=== PATIENT | female | born 1945 | race Caucasian/White ===

== ENCOUNTER → 2017-11-08 | Day surgery (SDC) | payer OTHER ==
[~2017-11-08] MED LIST: LIPITOR20 MG PO; NORVASC2.5 MG PO; SINGULAIR10 MG PO; VALSARTAN-HCTZ1 EAC4 PO
== END | disposition home or self-care (01) ==
LOC: CIR.AMB 06:24
DX: C50.212 Malignant neoplasm of upper-inner quadrant of left female breast (principal)

== ENCOUNTER 2024-03-03 17:21 | Emergency (ER) | payer OTHER ==
[~2024-03-03] VITALS: Ht 175.3 cm; Wt 79.4 kg
[2024-03-03] MEDS ORDERED: ENALAPRILAT DIHYDRATE 1.25 MG/ML VIAL IV ONE (18:45)
[2024-03-03 19:36] LABS: HEMATOCRIT 45.3 % (36.0-45.00); HEMOGLOBIN 15.3 g/dL (12.0-15.00); MEAN CELL VOLUME 89.6 fL (80.00-100.00); MEAN CORPUSCULAR HEMOGLOBIN 30.2 pg (27.00-32.0); MEAN CORPUSCULAR HGB CONC 33.7 g/dl (32.0-36.0); PLATELET COUNT 392 K/uL (150-450); RED BLOOD COUNT 5.06 M/uL (4.00-6.00); RED CELL DISTRIBUTION WIDTH 14.1 % (11.5-14.5)
[2024-03-03 20:05] LABS: ALBUMIN 4.1 gm/dL (3.4-5.0); BILIRUBIN TOTAL 0.61 mg/dL (0.3-1.2); CALCIUM 9.7 mg/dL (8.5-10.1); CREATININE SERUM 0.76 mg/dL (0.55-1.02); GFR 73.22; GLOBULINA 3.9 G/DL (2.4-3.5); POTASSIUM 3.91 mEq/L (3.5-5.1)
[2024-03-03 21:00] LABS: URINE APPEARANCE Clear; URINE BILIRRUBIN Negative (NEGATIVE); URINE BLOOD Trace; URINE COLOR Yellow; URINE GLUCOSE Negative (NEGATIVE); URINE KETONE Negative (NEGATIVE); URINE LEUKOCYTE Negative; URINE NITRATE Negative; URINE PROTEIN Negative (NEGATIVE); URINE UROBILINOGEN 0.2 E.U./dl
[2024-03-03] MEDS ORDERED: LABETALOL HCL 100 MG/20 ML ML IV ONE ×2 (21:00→22:30)
[2024-03-03 21:04] LABS: URINE BACTERIA 308.5 uL (0.0-1933); URINE EPITHELIAL CELLS 17.7 uL (0.0-38.8); URINE RBC 31.7 uL (0.0-20.8); URINE WBC 2.6 uL (0.0-23.2)
[2024-03-03] MEDS ORDERED: NIFEDIPINE 10 MG CAPSULE PO ONE (22:30)
== END 2024-03-04 00:02 ==
LOC: ER 17:23
PROVIDERS: Emergency Medicine; Nurse Practitioner Family
DX: I10 Essential (primary) hypertension (principal); Z91.041 Radiographic dye allergy status
CPT/HCPCS: 36415; 93005; 96365; 99283; J3490 ×4

== ENCOUNTER 2024-03-10 05:40 | Day surgery (SDC) | payer OTHER ==
[2024-03-10] MEDS ORDERED: LIDOCAINE HCL 1%/EPINEPHRINE 20ML VIAL IJ ONE (08:45)
[2024-03-10] MEDS ORDERED: CEFAZOLIN SODIUM 1,000 MG VIAL IV ONE (08:45)
[2024-03-10] MEDS ORDERED: GENTAMICIN SULFATE 40 MG/ML VIAL IR ONE (08:45)
[2024-03-10] MEDS ORDERED: MACROBID 100 M100 MG PO (09:37)
[2024-03-10] MEDS ORDERED: TRAM1TAB98 PO (09:38)
== END 2024-03-10 13:05 | disposition home or self-care (01) ==
LOC: CIR.AMB 05:40
PROVIDERS: ATTEND Obstetrics & Gynecology Gynecology
DX: N81.5 Vaginal enterocele (principal); N81.6 Rectocele; N81.11 Cystocele, midline; I10 Essential (primary) hypertension; Z91.041 Radiographic dye allergy status